=== PATIENT | female | born 1935 | race Two or more races ===

== ENCOUNTER 2017-09-26 16:36 | Emergency (ER) | payer OTHER ==
--- NOTE | 2017-09-26 20:38 | ER Physician Documentation ---
DATE OF SERVICE: IDENTIFICATION: An 82-year-old female patient, date of is 1935, the patient came to the ER. She is full code. Weight is 56.25 kilograms. Body surface area is 1.60. CHIEF COMPLAINT: This is an 82-year-old female patient. History was given to me by the patient's daughter saying that she is having a headache for a few days, more for 2 days area and she was concerned, so she brought the patient to the hospital. The patient does not have any other complaint. No nausea, no vomiting. HISTORY OF PRESENT ILLNESS: The patient does not have any associated symptoms like nausea, vomiting, paralysis of the arms and legs, sleeping problem, tumors, head injuries, or any kind of illness associated with the headache. The patient has no sinus infection. The patient has no flu-like symptoms. The patient's past history essentially for hypertension for which the patient is taking lisinopril and for which patient is taking simvastatin. The patient's past history is positive for hypertension and hypercholesterolemia. The dose exactly is not known. She says she is taking very low dose. REVIEW OF SYSTEMS: A 10-point review of system was checked. PULMONARY: No history of pneumonia, TB, pulmonary embolism, COPD, emphysema, bronchitis. BONES AND JOINTS: No complaints. ENDOCRINE: No history of diabetes mellitus, hypo or hyperthyroidism. GASTROINTESTINAL: No nausea, vomiting, or diarrhea. CENTRAL NERVOUS SYSTEM: Besides headache complained by the daughter, the patient does not have any other symptoms. GENITOURINARY: No burning, frequency, or dysuria. HEMATOLOGY/ONCOLOGY: Negative. The patient has no history of any cancer or anything else. ENT: Normal. The patient's other review of systems are all benign and negative. The patient was triaged at 1645. The patient was immediately seen within maybe 10 minutes or so, so maybe 1650 or so, the patient was seen. At 1650, the patient was interviewed, the patient was examined. PAST SURGICAL HISTORY: Includes the patient has a history of right shoulder rotator cuff surgery done at [facility] 3 years ago. PHYSICAL EXAMINATION: GENERAL: The patient appears to be awake, alert, oriented. She is not in any distress. She has according to the daughter some mild dementia. The patient does not utter a single word to me. The patient has been able to walk around and move around and move all the extremities. VITAL SIGNS: The patient's vital signs done by the nurse showed temperature of 97.9, pulse of 69, respirations of 18, blood pressure 135/69, and saturations 98%. Height of 5 feet 4 inches, weighing 124 pounds. The patient took a flu shot on 04/26. Tetanus etc is unknown. Last menstrual period is unknown. NEUROLOGIC: Benign and negative. Moves all the extremities. Reflexes are normal. Plantars are downgoing. No involuntary movements. No tremors are noted. CHEST: Reveals trachea to be central. Fairly good air entry in both lungs without any rales, rhonchi, bronchial breathing. The patient does not have any deformity of the chest wall. ABDOMEN: Soft, benign, and negative. Liver, spleen not enlarged. No free fluid in the abdominal cavities. HEART: Normal heart sounds. PMI located in the fifth intercostal space in the midclavicular line. S1, S2 are normal. On examination of the head, do not find any localized tenderness. I do not find any evidence of any nasal discharge. I do not find any evidence of flu like things or mastoiditis or sinusitis or frontal sinusitis or maxillary sinusitis, none of which could be seen. No meningeal signs were seen. No Kernig sign is seen. No Brudzinski sign is negative. Hence, no positive findings are seen. The patient yet is complaining of the headache. The cause of the headache maybe as a result of lisinopril and simvastatin, what doses she is taking, I am not sure, but she has to go and see her own doctor, perhaps this medication might need to be changed, maybe the medication is giving headache, maybe she is always feeling cold, so she is keeping the house closed. Sometimes, there is no oxygen in the house if you keep it closed and may give rise to headache. May need to expose to the open area to prevent headache. All these things were discussed with the patient and the patient was advised to come back if any other reasons, she can find. I do not find any reason other than the medications lisinopril or simvastatin, as one of the medication that may recur causing the patient's symptoms. ASSESSMENT AND PLAN: So the final diagnosis is headache. The cause is unknown, maybe lisinopril, maybe simvastatin, maybe the dose needs to be altered, maybe the dose need to be changed. OTHER DIAGNOSES: Includes: 1. Hypertension. 2. Hypercholesterolemia. 3. Right shoulder rotator cuff tear surgery done 3 years ago at [facility]. 4. 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 The vital signs are normal. Since no positive findings were detected, there was nothing for me to do at the present moment. The patient could not get the dosage of the medications, so she will see her own physician and then, decide further thing to be done. JOB# [id number]
== END 2017-09-26 17:10 | disposition home or self-care (01) ==
LOC: ER 16:36
DX: R51 Headache (principal); I10 Essential (primary) hypertension; E78.00 Pure hypercholesterolemia, unspecified
CPT/HCPCS: Z7502